=== PATIENT | male | born 1970 | race Caucasian/White ===

== ENCOUNTER 2022-09-09 16:20 | Emergency (ER) | payer OTHER ==
[2022-09-09 16:44] VITALS: BP 126/89; PULSE 111; RESP 18; TEMP 98.1; BMI 26.1
== END 2022-09-09 17:48 | disposition home or self-care (01) ==
LOC: FER 16:20
DX: J11.1 Influenza due to unidentified influenza virus with other respiratory manifestations (principal)
CPT/HCPCS: 0241U-QW; 99283-25

== ENCOUNTER 2023-11-12 17:50 | Emergency (ER) | payer OTHER ==
[2023-11-12 17:56] VITALS: BP 131/92; PULSE 110; RESP 18; TEMP 98.2; BMI 25.3
[2023-11-12] MEDS ORDERED: MAG HYDROX/AL HYDROX/SIMETH 30 ML UNIT-DOSE CUP ONE (19:29)
[2023-11-12] MEDS ORDERED: FAMOTIDINE 20 MG/50 ML IVPB 20 MG/50 ML MG IVPB ONE (19:29)
[2023-11-12] MEDS ORDERED: ONDANSETRON 4 MG/2 ML VIAL ONE (19:29)
[2023-11-12] MEDS: MAG HYDROX/AL HYDROX/SIMETH 30 ML UNIT-DOSE CUP PO ONE (19:48)
[2023-11-12] MEDS: SODIUM CHLORIDE 0.9% 500 ML INFUS.BAG IV ONE (19:48)
[2023-11-12] MEDS: FAMOTIDINE 20 MG/50 ML IVPB 20 MG/50 ML MG IVPB ONE (19:49)
[2023-11-12] MEDS: ONDANSETRON 4 MG/2 ML VIAL IVPUSH ONE (19:49)
[2023-11-12 19:53] LABS: HEMATOCRIT 44.9 % (35.4-49); HEMOGLOBIN 15.6 G/dL (11.7-16.9); MCH 29.4 pg (25.7-33.7); MCHC 34.8 g/dl (32.0-35.9); MEAN CELL VOLUME 84.4 fl (80-96); MEAN PLT VOLUME 9.5 fl (7.5-11.1); PLATELET COUNT 194.9 10^3/uL (134-434); RBC 5.32 10^6/uL (4.00-5.60); RDW 14.3 % (11.9-15.9)
[2023-11-12 20:14] LABS: ALBUMIN 4.1 g/dl (3.4-5.0); BILIRUBIN,TOTAL 1.1 mg/dl (0.2-1); CALCIUM 9.2 mg/dl (8.5-10.1); MAGNESIUM 1.7 mg/dL (1.8-2.4); POTASSIUM 3.9 mmol/L (3.5-5.1); TOT PROT 7.2 g/dl (6.4-8.2)
[2023-11-12 20:25] LABS: PLATELET ESTIMATE ADEQUATE
[2023-11-12] MEDS: SODIUM CHLORIDE 1,000 ML IV ONE (21:25)
== END 2023-11-12 22:04 | disposition home or self-care (01) ==
LOC: FER 17:50
PROC: 3E033GC Introduction of Other Therapeutic Substance into Peripheral Vein, Percutaneous Approach (ICD-10-PCS; principal; 2023-11-12)
PROC: 3E033GC Introduction of Other Therapeutic Substance into Peripheral Vein, Percutaneous Approach (ICD-10-PCS; 2023-11-12)
PROC: 3E0337Z Introduction of Electrolytic and Water Balance Substance into Peripheral Vein, Percutaneous Approach (ICD-10-PCS; 2023-11-12)
DX: R19.7 Diarrhea, unspecified (principal); R11.10 Vomiting, unspecified; E86.0 Dehydration; Z20.822 Contact with and (suspected) exposure to COVID-19
CPT/HCPCS: 0241U-QW; 36415; 71046-TC-FY; 80053; 83690; 83735; 84484; 85025; 93005; 99285-25